=== PATIENT | female | born 1950 | race Caucasian/White ===

== ENCOUNTER 2017-07-27 13:00 | Day surgery (SDC) | payer MEDICARE ==
[~2017-07-27] VITALS: Ht 154.9 cm; Wt 87.6 kg
[~2017-07-27 13:00] MED LIST: ALBU90OI6 INH; CALCA500CH PO; CALTRATE 600 +1 EACH PO; CHOL10002 PO; Caltrate-600 W1 EACH PO; Citrucel500 MG PO; FLUSAL2505 IH; MONT10T PO; NAPR250 PO; RANI150 PO
[2017-07-27] MEDS ORDERED: Omeprazole20 M1 (13:38)
[2018-05-18] MEDS ORDERED: Voltaren100 GM TOP (07:07)
== END 2017-07-27 17:41 | disposition home or self-care (01) ==
LOC: ORSCSDS 13:00
PROVIDERS: Podiatrist Foot & Ankle Surgery
PROC: 0QSP04Z Reposition Left Metatarsal with Internal Fixation Device, Open Approach (ICD-10-PCS; principal; 2017-07-27 14:15)
PROC: 0SGQ04Z Fusion of Left Toe Phalangeal Joint with Internal Fixation Device, Open Approach (ICD-10-PCS; principal; 2017-07-27 14:15)
DX: M20.10 Hallux valgus (acquired), unspecified foot (principal); M20.42 Other hammer toe(s) (acquired), left foot; J45.909 Unspecified asthma, uncomplicated; K21.9 Gastro-esophageal reflux disease without esophagitis; Z79.899 Other long term (current) drug therapy
CPT/HCPCS: 82947; C1713; J0171; J0690; J1100; J1885; J2250; J2405; J3010; J7120

== ENCOUNTER 2018-08-02 11:03 | Day surgery (SDC) | payer MEDICARE ==
[~2018-08-02] VITALS: Ht 154.9 cm; Wt 91.4 kg
[~2018-08-02 11:03] MED LIST changes: +Omeprazole20 M1 PO; +Voltaren100 GM TOP
--- NOTE | 2018-08-02 12:18 | NUR ---
08/02/18 1218 Marcelina Hernandez PRE OP TEACHING COMPLETED AT THIS TIME. CALL LIGHT WITHIN REACH AND WARM BLANKET PROVIDED.
--- NOTE | 2018-08-02 14:17 | NUR ---
08/02/18 1417 Martha Roper WHEN ASKED PT. IF SHE HAD ANY PAIN, PT. VERBALIZED "MY RIGHT FOOT." & THEN WENT BACK TO SLEEP.
--- NOTE | 2018-08-02 15:12 | NUR ---
08/02/18 1512 Martha Roper PT. STILL NAUSEATED IN SD. PT. WITH DRY HEAVES BUT THEN VERBALIZED FEELING BETTER AFTER DRY HEAVES. PT. EATING SOME ICE CHIPS. PT. REFUSED ANY SODA CRACKERS. WILL WAIT TO GET PT. UP TO RECLINER AFTER NAUSEA IS BETTER. RIGHT FOOT CONTINUES TO BE ELEVATED WITH FOB UP. CALL LIGHT WITHIN REACH. PT. VERBALIZES BEING WARM ENOUGH.
== END 2018-08-02 16:45 | disposition home or self-care (01) ==
LOC: ORSCSDS 11:03
PROVIDERS: Podiatrist Foot & Ankle Surgery
PROC: 0QSN04Z Reposition Right Metatarsal with Internal Fixation Device, Open Approach (ICD-10-PCS; principal; 2018-08-02 12:30)
PROC: 0SGK04Z Fusion of Right Tarsometatarsal Joint with Internal Fixation Device, Open Approach (ICD-10-PCS; principal; 2018-08-02 12:30)
DX: M20.11 Hallux valgus (acquired), right foot (principal); J45.909 Unspecified asthma, uncomplicated; G47.33 Obstructive sleep apnea (adult) (pediatric); E78.5 Hyperlipidemia, unspecified; I25.10 Atherosclerotic heart disease of native coronary artery without angina pectoris; E66.01 Morbid (severe) obesity due to excess calories; Z68.39 Body mass index [BMI] 39.0-39.9, adult; Z79.899 Other long term (current) drug therapy
CPT/HCPCS: C1713; C1769; J0690; J1100; J2250; J2405; J2765; J3010; J7120

== ENCOUNTER → 2019-08-16 | Outpatient (CLI) | payer MEDICARE | END | disposition home or self-care (01) | LOC: PLD 10:47 → LAB SHORT 10:47 | DX: N89.8 Other specified noninflammatory disorders of vagina (principal) | CPT/HCPCS: 88305 ==

== ENCOUNTER → 2019-08-16 | Outpatient (CLI) | payer MEDICARE ==
[2019-08-16 15:04] LABS: Candida species (DNA Probe) Negative (NEGATIVE); G. vaginalis (DNA Probe) Negative (NEGATIVE); T. vaginalis (DNA Probe) Negative (NEGATIVE)
== END | disposition home or self-care (01) ==
LOC: LAB UCHC 09:33 → LAB SHORT 09:33
PROVIDERS: Internal Medicine
DX: N76.0 Acute vaginitis (principal)
CPT/HCPCS: 87480; 87510; 87660

== ENCOUNTER → 2019-11-08 | Outpatient (CLI) | payer MEDICARE ==
[2019-11-09 21:30] LABS: Campylobacter Sp Not Detected (NOT DETECT)
[2019-11-09 21:31] LABS: Adenovirus F 40/41 Not Detected (NOT DETECT); Astrovirus Not Detected (NOT DETECT); Cryptosporidium Not Detected (NOT DETECT); Cyclospora Cayetanensis Not Detected (NOT DETECT); E. Coli O157 Not Detected (NOT DETECT); Entamoeba Histolytica Not Detected (NOT DETECT); Enteroaggregative E. coli-EAEC Not Detected (NOT DETECT); Enteropathogenic E. coli-EPEC Not Detected (NOT DETECT); Enterotoxigenic E. coli-ETEC Not Detected (NOT DETECT); Giardia Lamblia Not Detected (NOT DETECT); Norovirus GI/GII Not Detected (NOT DETECT); Plesiomonas Shigelloides Not Detected (NOT DETECT); Rotavirus A Not Detected (NOT DETECT); Salmonella Sp Not Detected (NOT DETECT); Sapovirus Not Detected (NOT DETECT); Shiga Toxin-prod E. coli-STEC Not Detected (NOT DETECT); Shigella/Enteroin E. coli-EIEC Not Detected (NOT DETECT); Vibrio Cholerae Not Detected (NOT DETECT); Vibrio Sp Not Detected (NOT DETECT); Yersinia Enterocolitica Not Detected (NOT DETECT)
[2019-11-10 14:10] LABS: FATS, NEUTRAL Normal (.); FATS, TOTAL Normal (.)
== END | disposition home or self-care (01) ==
LOC: LAB 10:26 → LAB SHORT 10:26 → LAB FUT 10-30 11:05
PROVIDERS: Internal Medicine Gastroenterology
DX: R19.7 Diarrhea, unspecified (principal)
CPT/HCPCS: 0097U; 89055

== ENCOUNTER → 2019-11-30 | Outpatient (CLI) | payer MEDICARE | END | disposition home or self-care (01) | DX: K52.9 Noninfective gastroenteritis and colitis, unspecified (principal) ==

== ENCOUNTER → 2019-12-22 | Outpatient (CLI) | payer MEDICARE | END | disposition home or self-care (01) | LOC: LAB 14:02 → LAB SHORT 14:02 → EDSTATUS 12-20 10:50 → LAB FUT 12-20 10:50 | DX: K52.9 Noninfective gastroenteritis and colitis, unspecified (principal) ==

== ENCOUNTER → 2021-01-11 | Outpatient (CLI) | payer MEDICARE ==
[~2021-01-11] MED LIST changes: +DICLOFENAC SOD100 G1 TP; +Norco 5-325 Ta1 EACH PO; +WIXELA 250-501 EAC1 IH
== END | disposition home or self-care (01) ==
LOC: LAB SHORT 14:22 → LAB UCHC 14:22
DX: N39.0 Urinary tract infection, site not specified (principal)
CPT/HCPCS: 87077; 87086; 87186

== ENCOUNTER 2021-09-09 21:43 | Inpatient (IN) | payer MEDICARE ==
[~2021-09-09] VITALS: Ht 154.9 cm; Wt 90.4 kg
[2021-09-09 22:12] LABS: BASOPHILS ABSOLUTE AUTO 0.05 K/mm3 (0.00-0.23); BASOPHILS PERCENT AUTO 1 % (0-2); EOSINOPHILS ABSOLUTE AUTO 0.09 K/mm3 (0.00-0.68); EOSINOPHILS PERCENT AUTO 1 % (0-6); Hematocrit 44.2 % (33.0-51.0); Hemoglobin 14.8 g/dL (11.5-16.0); IMMATURE GRAN ABSOLUTE AUTO 0.02 K/mm3 (0.00-0.10); IMMATURE GRAN PERCENT AUTO 0 % (0-1); LYMPHOCYTES PERCENT AUTO 14 % (21-46); MONOCYTES ABSOLUTE AUTO 0.52 K/mm3 (0.16-1.47); MONOCYTES PERCENT AUTO 6 % (4-13); Mean Corpuscular HGB 30.3 pg (26.0-34.0); Mean Corpuscular HGB Conc 33.5 g/dL (31.5-36.5); Mean Corpuscular Volume 91 fL (80-100); NEUTROPHILS ABSOLUTE AUTO 7.04 K/mm3 (1.96-9.15); NEUTROPHILS PERCENT AUTO 78 % (41-73); Platelet Count 258 K/mm3 (150-400); RDW Coefficient Variation 11.9 % (11.7-14.2); RDW Standard Deviation 39.4 fL (35.1-46.3); Red Blood Cell Count 4.88 M/mm3 (3.80-5.20); White Blood Cell Count 9.02 K/mm3 (4.00-11.30)
[2021-09-09] MEDS ORDERED: OMEP20ER PO (22:34)
[2021-09-09] MEDS ORDERED: DULERA 100 MCG-13 GM INH (22:35)
[2021-09-09 22:36] LABS: Alanine Aminotransfer (ALT/SGP 23 U/L (12-78); Albumin, Blood 3.8 g/dL (3.4-5.0); Albumin/Globulin Ratio 1.1 (0.8-1.8); Alk Phos 79 U/L (50-136); Anion Gap 7 mmol/L (6-16); Aspartate Aminotrans (AST/SGOT 15 U/L (12-37); Bilirubin, Total 0.6 mg/dL (0.1-1.0); Blood Urea Nitrogen 30 mg/dL (8-24); Bun/Creatinine Ratio 33.3 (12.0-20.0); CO2, Blood 28 mmol/L (21-32); Calcium, Blood 10.2 mg/dL (8.5-10.1); Chloride, Blood 101 mmol/L (98-108); Globulin, Blood 3.6 g/dL (2.2-4.0); Glomerular Filtration Rate >60 (60-); Glucose, Blood 158 mg/dL (70-99); Potassium, Blood 4.1 mmol/L (3.5-5.5); Sodium, Blood 136 mmol/L (136-145); Total Protein, Blood 7.4 g/dL (6.4-8.2)
[2021-09-09 23:00] LABS: Source, Urine Clean Catch
[2021-09-09 23:01] LABS: Bilirubin, Urine Neg (Neg); Blood, Urine Neg (Neg); Glucose Qualitative, Urine Neg (Neg); Ketones, Urine 1+ (Neg); Leukocyte Esterase, Urine Neg (Neg); Nitrite, Urine Neg (Neg); Protein, Urine Neg (Neg); Specific Gravity, Urine 1.025 (1.003-1.022); Urobilinogen, Urine NORM (Normal)
[2021-09-09 23:08] LABS: Appearance, Urine Clear (Clear); Color, Urine Pale Yellow (P-Yellow)
[2021-09-10] MEDS ORDERED: CENTRUM SILVER1 EAC2 PO (03:45)
[2021-09-10] MEDS ORDERED: THERA-D2000 UNIT PO (03:45)
--- NOTE | 2021-09-10 04:27 | NUR ---
PT ARRIVED TO ROOM 226 FROM ER. PT A/O, VSS. PT REP PAIN ACCROSS LOWER ABD. PT REP PAIN X2 DAYS. BT HYPO, ABD SOFT TO PALP. MILDLY DISTENDED. PT REP SMALL BM YESTERDAY AM, STATES NO LONGER PASSING FLATUS. PT DENIES N/V, REP PAIN KIMANI AT THIS TIME. PT ORIENTED TO ROOM/CALL LIGHT/NPO STATUS. COVID SWAB COLLECTED.
[2021-09-10 04:55] LABS: Influenza A, PCR NEGATIVE (NEGATIVE); Influenza B, PCR NEGATIVE (NEGATIVE); Resp Syncytial Virus, PCR NEGATIVE (NEGATIVE); SARS-Cov-2 (COVID-19) PCR, MMC NEGATIVE (NEGATIVE)
--- NOTE | 2021-09-10 06:33 | NUR ---
PT HAD NO CHANGES SINCE ARRIVING TO FLOOR. PT REP PAIN KIMANI, DECLINED NEED FOR PAIN MEDS. PT DENIED N/V, IS VOIDING URINE W/O DIFFICULTY. PT NPO SINCE ARRIVING TO FLOOR, IVF CONT. AWAITING SURGICAL EVAL.
--- NOTE | 2021-09-10 17:39 | NUR ---
SHIFT SUMMARY PT A&OX4, VSS/RA DAY/2LNC NOC, VOIDING WELL, NPO, DENIES PAIN, IVF INFUSING 20GRAC. WENT TO O.R. APPROX 11 FOR SIG COLECTOMY W/POSS OSTOMY. WILL REPORT TO ONCOMING NOC RN.
[2021-09-11 03:59] LABS: BASOPHILS ABSOLUTE AUTO 0.03 K/mm3 (0.00-0.23); BASOPHILS PERCENT AUTO 0 % (0-2); EOSINOPHILS PERCENT AUTO 0 % (0-6); Hematocrit 38.3 % (33.0-51.0); Hemoglobin 12.8 g/dL (11.5-16.0); IMMATURE GRAN ABSOLUTE AUTO 0.03 K/mm3 (0.00-0.10); IMMATURE GRAN PERCENT AUTO 0 % (0-1); LYMPHOCYTES ABSOLUTE AUTO 0.58 K/mm3 (0.84-5.20); LYMPHOCYTES PERCENT AUTO 6 % (21-46); MONOCYTES ABSOLUTE AUTO 0.61 K/mm3 (0.16-1.47); MONOCYTES PERCENT AUTO 6 % (4-13); Mean Corpuscular HGB 30.7 pg (26.0-34.0); Mean Corpuscular HGB Conc 33.4 g/dL (31.5-36.5); Mean Corpuscular Volume 92 fL (80-100); Mean Platelet Volume 10.6 fL (9.1-12.4); NEUTROPHILS PERCENT AUTO 88 % (41-73); Platelet Count 204 K/mm3 (150-400); RDW Coefficient Variation 11.9 % (11.7-14.2); RDW Standard Deviation 40.2 fL (35.1-46.3); Red Blood Cell Count 4.17 M/mm3 (3.80-5.20); White Blood Cell Count 10.55 K/mm3 (4.00-11.30)
[2021-09-11 04:25] LABS: Anion Gap 5 mmol/L (6-16); Blood Urea Nitrogen 18 mg/dL (8-24); Bun/Creatinine Ratio 23.6 (12.0-20.0); CO2, Blood 28 mmol/L (21-32); Chloride, Blood 107 mmol/L (98-108); Creatinine, Blood 0.76 mg/dL (0.40-1.00); Glomerular Filtration Rate >60 (60-); Glucose, Blood 129 mg/dL (70-99); Potassium, Blood 3.8 mmol/L (3.5-5.5); Sodium, Blood 140 mmol/L (136-145)
[2021-09-11 04:27] LABS: Calcium, Blood 7.7 mg/dL (8.5-10.1)
--- NOTE | 2021-09-11 05:07 | NUR ---
PT IS ALERT AND ORIENTED X4.LUNGS CLEAR. BT PRESENT. OSTOMY BM OUTPUT 300 ML. MIDLINE INCISION DRESSING WITH SOME SANGENOUS DRAIN; MARKED. LOWER PART OF ABDOME MIDLINE INCISCION IS BRUISED BUT SOFT. EPIDURAL SITE WITH SOME BLOOD ON SITE WITH NO CHANGES SINCE ARRIVAL FROM PACU. PAIN CONTROLLED. BILATERAL FULL SENSATION. ABLE TO LIFT UP BOTH LEGS. VSS. PT WAS ITCHING AND BENADRYL WAS GIVEN. NPO WITH ICE CHIPS.
--- NOTE | 2021-09-11 17:49 | NUR ---
SUMMARY: PT IS POD1 SIGMOID COLECTOMY. A/O, PT HYPOTENSIVE AT TIMES, ASYMPTOMATIC, OTHERWISE VSS. EPIDURAL MANAGING PAIN WELL, PT REPORTS PAIN 0-2/10 TODAY, INCREASES WITH MOVEMENT. PT REPORTS FULL SENSATION, SEE EPIDURAL ASSESSMENTS. OSTOMY APPLIANCE LEAKED TONIGHT, HAS DRAINED LIQUID BROWN STOOL TODAY. KATHIA DRESSING WET SO REMOVED AND INCISION CLEANSED AND KATHIA REPLACED. THERE IS REDNESS/BRUISING AT THE BASE OF INCISION, DR. BHAGAT IN ROOM AT TIME OF CHANGE AND BRUISING NOTED. OSTOMY BAG ALSO REMOVED AND SURROUNDING SKIN CLEANED, THERE IS WHAT APPEARS TO BE CLOTTING NEAR THE STOMA, DR. BHAGAT ALSO MADE AWARE OF THIS AND PLANS TO LET DR. LIZAMA KNOW. OTHERWISE STOMA IS WNL. OSTOMY BAG REAPPLIED. PT TOLERATED WELL. NO ACUTE SAFETY CONCERNS AT THIS TIME. WILL CTM AND REPORT TO SHANKAR LOMAS.
--- NOTE | 2021-09-12 04:40 | NUR ---
ALERT AND ORIENTED X4. LUNGS WHEEZING. BS ACTIVE. OSTOMY BAG GOT CHANGED; THERE IS A BIG BLOOD CLOT AT THE BUDD; PREVIOUS RN IMFORMED ME OF MD IS AWARE. BM OUTPUT SMALL THRU THE SHIFT; PASTY. OSTOMY BAG AND INCISION DRESSING WAS CHANGED DUE TO LEAKING TO THE INCISION. TEMP FROM 99.0 TO 100.0 THRU THE HAND BINDER CUTTER. RED SPOT BY INCISION IS SOFT. VSS WITH THE EXEPTION OF THE TEMP. TOLERATING CLEARS.
--- NOTE | 2021-09-12 15:05 | NUR ---
[facility] SUPPLY SHEET FILLED OUT AND FAXED. COMPLETED DOCUMENT PLACED ON PT'S CHART.
--- NOTE | 2021-09-12 16:51 | NUR ---
SHIFT SUMMARY PT IS POD#2 FROM SIGMOID COLECTOMY WITH OSTOMY. PAIN MANGED WITH EPIDURAL. SHE HAS HAD FULL SENSATION T/O THE DAY BUT REPORTS ADEQUATE PAIN MANAGMENT. EPIDURAL DRESSING INTACT, SOME DRY BLOOD UNDER DRESSING, NO CHANGES SINCE AM ASSESSMENT. PT WAS ABLE TO GET TO THE CHAIR WITH 2 ASSIST. PT IS TOLERATING CLEAR LIQUID TRAYS. PT HAS NOT HAD OSTOMY OUTPUT TODAY. REPORT GIVEN TO YESSI LOMAS.
--- NOTE | 2021-09-12 16:53 | NUR ---
ASSUMED CARE OF PT FROM HUBER Nolan RN. PT SLEEPING. BREATHING E/U.
--- NOTE | 2021-09-12 18:52 | NUR ---
report given to oncoming shift.
--- NOTE | 2021-09-12 23:58 | NUR ---
ASSUMING CARE OF PT FROM PRIMARY ABEBE FELIX. PT RESTING AT THIS TIME,
--- NOTE | 2021-09-13 06:05 | NUR ---
TIRE BAGGER SUMMARY NO ACUTE CHANGES THIS SHIFT. PT AAOX4 AND PLEASANT. EPIDURAL @ 6 ML/HR, PT REPORTING NO PAIN. EPIDURAL SITE WNL. PT HAS FULL SENSATION. COLOSTOMY HAS SMALL AMOUNTS OF BROWN LIQUID. VSS, WILL CONTINUE TO MONITOR.
--- NOTE | 2021-09-13 17:18 | NUR ---
SHIFT SUMMARY: POD 3 COLECTOMY WITH COLOSTOMY PATIENT IS ALERT AND ORIENTED X4. VS ARE WNL AND IS ON RA. PAIN IS MANAGED WITH 2 PO NORCO'S. KATHIA AND OSTOMY WERE CHANGED ABOUT AN HOUR AGO BECAUSE THE OSTOMY LEAKED ON THE KATHIA. CHARGE NURSE AND THIS NURSE CHANGED KATHIA TO A MEDIPORT DRESSING AND ALSO CHANGED THE OSTOMY. PATIENT WAS TALKED VERBALLY ON HOW TO CHANGE THE OSTOMY BAG AND THAT SHE CAN SHOWER WITH IT. PATIENT VERBALIZED SOME UNDERSTANDING OF IT. PATIENT WAS ENCOURAGED THAT SHE WILL BE ABLE TO GO ON VACATION [place] AND HER COURAGE WILL BE GAINED THE MORE SHE WORKS ON HER OSTOMY. PATIENT IS WANTING TO TRY AND CHANGE HER OSTOMY NEXT TIME IT LEAKS AND WANTS THE NURSE TO WATCH AND GIVE HER TIPS. PATIENTS OSTOMY HAS RED DARK OUTPUT AT THIS TIME AND IS CREATING GAS. SHE IS TOLERATING A SMALL AMOUNT OF PO INTAKE. PATIENT AMBULATED THE HALLWAY AND IS A SBA WITH FWW AND GAIT BELT. SHE IS VOIDING YELLOW URINE. CALLS APPROPRIATELY. CALL LIGHT WITHIN REACH. THE PLAN IS TO POSSIBLY DISCHARGE HOME WITH HOME HEALTH ON THURSDAY AND TO CONTINUE OSTOMY EDUCATION. PATIENT IS VERY WILLING TO LEARN ABOUT HER OSTOMY CARE. NEEDS ENCOURAGEMENT THAT SHE CAN DO IT.
[2021-09-14 04:17] LABS: BASOPHILS ABSOLUTE AUTO 0.03 K/mm3 (0.00-0.23); BASOPHILS PERCENT AUTO 0 % (0-2); EOSINOPHILS ABSOLUTE AUTO 0.34 K/mm3 (0.00-0.68); EOSINOPHILS PERCENT AUTO 5 % (0-6); Hematocrit 34.1 % (33.0-51.0); Hemoglobin 11.2 g/dL (11.5-16.0); IMMATURE GRAN ABSOLUTE AUTO 0.02 K/mm3 (0.00-0.10); IMMATURE GRAN PERCENT AUTO 0 % (0-1); LYMPHOCYTES ABSOLUTE AUTO 1.29 K/mm3 (0.84-5.20); LYMPHOCYTES PERCENT AUTO 19 % (21-46); MONOCYTES ABSOLUTE AUTO 0.45 K/mm3 (0.16-1.47); MONOCYTES PERCENT AUTO 7 % (4-13); Mean Corpuscular HGB 30.8 pg (26.0-34.0); Mean Corpuscular HGB Conc 32.8 g/dL (31.5-36.5); Mean Corpuscular Volume 94 fL (80-100); Mean Platelet Volume 10.3 fL (9.1-12.4); NEUTROPHILS ABSOLUTE AUTO 4.74 K/mm3 (1.96-9.15); NEUTROPHILS PERCENT AUTO 69 % (41-73); Platelet Count 211 K/mm3 (150-400); RDW Coefficient Variation 11.7 % (11.7-14.2); Red Blood Cell Count 3.64 M/mm3 (3.80-5.20); White Blood Cell Count 6.87 K/mm3 (4.00-11.30)
[2021-09-14 04:36] LABS: Anion Gap 3 mmol/L (6-16); Blood Urea Nitrogen 8 mg/dL (8-24); CO2, Blood 27 mmol/L (21-32); Calcium, Blood 8.1 mg/dL (8.5-10.1); Chloride, Blood 109 mmol/L (98-108); Creatinine, Blood 0.67 mg/dL (0.40-1.00); Glomerular Filtration Rate >60 (60-); Glucose, Blood 122 mg/dL (70-99); Potassium, Blood 4.4 mmol/L (3.5-5.5); Sodium, Blood 139 mmol/L (136-145)
--- NOTE | 2021-09-14 04:53 | NUR ---
SHIFT SUMMARY POD4 SIGMOID COLECTOMY WITH END COLOSTOMY. OSTOMY ON L QUADRANT, VERY MINIMAL STOOL, PASSING FLATUS IN OSTOMY BAG. PT REPORTS SOME MILD PAIN (3/10), INCREASED ABD PAIN WHEN GETTING UP (5/10). PAIN MEDS MANAGED WITH NORCO AND TYLENOL WHICH PROVIDES RELIEF. PT NORMALLY WEARS CPAP AT NIGHT. REPORTS THAT CONT BIOX BEEPS/ALARMS AT NIGHT AND HAS NOT BEEN ABLE TO SLEEP WELL. CPAP REPLACED WITH 2L NASAL CANULA OVERNIGHT. PT STS SHE WAS ABLE TO SLEEP BETTER AND REST OVERNIGHT. TOLERATING FULL LIQ DIET, BUT DOES NOT HAVE MUCH APPETITE. PT REPORTS MILD NAUSEA WHEN SHE GOT UP X1 MEDICATED WITH ZOFRAN DENIES VOMITING. BT PRESENT. AMBULATES IN THE BATHROOM, SBA WITH FWW. CALL LIGHT WITHIN REACH. WILL PROVIDE REPORT TO ONCOMING NURSE.
--- NOTE | 2021-09-14 13:28 | NUR ---
PROVIDING EDUCATION TO PATIENT ON PARTNER ON OSTOMY. SHE REPORTED FEELING WEAK AND CLAMMY. DENIED FEELINGS ON ANXIETY RELATED TO EDUCATION. SHE REPORTED SLIGHT TINGLING IN FINGERS AND TOES THAT RESOLVED. SHE REPORTED FEELING LIKE SHE WAS HAVING A "SUGAR CRASH". SHE STATED SHE HAS AVOIDED A DIABETES DIAGNOSES HER WHOLE LIFE. SPOKE WITH DR. LIZAMA AND RECIEVED ORDERS FOR A CBG CHECK. CBG OF 165. PT CURRENTLY SITTING UP IN HER CHAIR. REPORTS SOME IMPROVEMENT, CURRENTLY ATTEMPTING TO TAKE A NAP R/T BEING VERY TIRED. CONTINOUS BIOX ON PATENT AND CALL LIGHT IN REACH.
--- NOTE | 2021-09-14 14:24 | NUR ---
pt reports feeling better at this time. she is still sitting up in chair trying to sleep.
--- NOTE | 2021-09-14 17:30 | NUR ---
SHIFT SUMMARY PT IS POD 4 SIGMOID COLECTOMY W/ OSTOMY TO LLQ. NO OUTPUT THROUGH STOMA YET, FREQ FLATUS. STOMA APPEARS DARK RED W/ BROWN SLOUGH. PT APPEARS ANXIOUS ABOUT OSTOMY CARE. ABEBE HOLLOWAY DISCUSSED OSTOMY CARE W/ PATIENT AND PARTNER & ANSWERED QIESTIONS FOR HER, PT WAS RECEPTIVE TO LEARNING. MIDLINE INCISION W/ SHON AND MEDIPORE DRSG IN PLACE, SMALL AMT OF SHADOWING PRESENT. TOLERATING FULL LIQUID DIET, INT NAUSEA REPORTED T/O DAY, NO VOMITTING, MEDICATED W/ ZOFRAN PER EMAR. PT REPORTS HAVING MINIMAL APPETITE AND HAS POOR INTAKE, ENCOURAGING ENSURE/NUTRITION. VSS T/O SHIFT. 2L O2 VIA NC FOR PATIENT COMFORT. PT REPORTED FEELING LIKE SHE HAD A LOW BLOOD SUGAR, DR. LIZAMA NOTIFIED AND CBG ORDERED, WAS 165. PT REPORTED FEELING BETTER AFTER A NAP, THEN STATED SHE FELT SHE STOPPED BREATHING WHEN DOZING OFF THIS AFTERNOON, DENIED IT BEING RELATED TO HER SLEEP APNEA. BIOX IN PLACE AND O2 REMAINS >90% ON 2L. SHE APPEARS ANXIOUS BUT IS ABLE TO BE REASSURED. WILL CONTINUE TO MONITOR AND REPORT TO ONCOMING RN.
--- NOTE | 2021-09-14 18:02 | NUR ---
pt reported to this rn that she has had a headache since this am when she reported slight nausea and tingling in hands and feet. she reported that she had been having increasing headaches before admission and had seen her pcp regarding them, occasionally causing nausea. she had been take a medication "Migratone" 2 tabs daily with some relief. pt reported norco has helped her headaches in hospital prior, medicated per emar. will monitor for relief from headache and worsening symptoms.
--- NOTE | 2021-09-14 19:15 | NUR ---
RECEIVED REPORT AND ASSUMED CARE OF PT. SHE IS SITTING UP IN THE RECLINER, A&O, REPORTS PAIN TOLERABLE AT THIS TIME. ONE PERSON STANDBY ASSIST TO THE BATHROOM WITH A FWW, REFUSES GAIT BELT AT THIS TIME. ABLE TO URINATE WITHOUT DIFFICULTY, BURPING OSTOMY BAG INDEPENDENTLY. WCTM.
--- NOTE | 2021-09-15 05:00 | NUR ---
SHIFT SUMMARY: KAMARI IS A&OX4. VSS, NO ACUTE EVENTS OVERNIGHT. SHE IS A ONE-PERSON STANDBY ASSIST TO THE BATHROOM, ABLE TO TURN AND REPOSITION HERSELF IN BED INDEPENDENTLY, TOLERATING LIQUIDS WITH MINIMAL NAUSEA THIS SHIFT. GOOD URINE OUTPUT, MIDLINE DRESSING DRY AND INTACT. SHE DID WEAR HER CPAP WHILE SHE WAS IN BED RESTING THIS SHIFT, USES THE CALL LIGHT APPROPRIATELY. OSTOMY WITH MINIMAL GAS OUTPUT THIS SHIFT, NO STOOL, APPLIANCE ADHERED WELL. SHE IS LYING IN BED WITH THE CALL LIGHT IN REACH. WILL REPORT TO DAY SHIFT RN.
--- NOTE | 2021-09-15 17:39 | NUR ---
SHIFT SUMMARY A&O X4,LESS ANXIETY ABOUT OSTOMY TODAY. POD5 SIGMOID COLECTOMY, MIDLINE INCISION W/MEDIPORE, C/D/I. STOMA APPEARS MAUROON IN COLOR, DR HAS SEEN & IS OK W/ COLOR. NO BM YET, FREQ FLATUS, PT BURPS OWN BAG. PT REPORTS MOD ABD PAIN, MEDICATED W/ NORCO PER EMAR. INT NAUSEA, MOSTLY W/ MOVEMENT. MEDICATED W/ ZOFRAN PER EMAR. AMBULATED SHORT DIST FREQ TODAY, ENCOURAGED MOVEMENT & ACTIVITY FREQUENTLY. TOLERATING PO INTAKE ALTHOUGH VERY POOR APPETITE. ENCOURAGING PO INTAKE & NUTRITION. PT REPORTS HAVING A BETTER DAY TODAY & SEEMS TO HAVE A BETTER AFFECT. WILL REPORT TO ONCOMING RN.
--- NOTE | 2021-09-15 19:37 | NUR ---
RECEIVED REPORT AND ASSUMED CARE OF PT. SHE IS SITTING UP IN THE RECLINER AT THE BEDSIDE, CHEERFUL AFFECT. SHE STATES SHE HAS BEEN UP WALKING TODAY AND CONTINUES TO PASS GAS THROUGH HER OSTOMY. SHE DENIES ANY NEEDS AT THIS TIME. TONY.
--- NOTE | 2021-09-16 05:04 | NUR ---
SHIFT SUMMARY: KAMARI IS A&O X 4. VSS, NO ACUTE EVENTS OVERNIGHT. SHE IS INDEPENDENT TO THE BATHROOM, IS BURPING HER OSTOMY INDEPENDENTLY, NO STOOL THROUGH OSTOMY YET. SHE IS TOLERATING PO INTAKE, URINATING WITHOUT DIFFICULTY, AND ABLE TO MAKE HER NEEDS KNOWN. SHE IS LYING IN BED WITH HER CPAP IN PLACE, CALL LIGHT IN REACH. WILL REPORT TO DAY SHIFT RN.
--- NOTE | 2021-09-16 09:00 | NUR ---
IN ROOM. EXPECTING DISCHARGE TODAY. WILL NEED FURTHER OSTOMY TRAINING. WANTS PT TO TAKE SHOWER AFTER REMOVE DRESSINGS AND BAG. THEN REPLACE AFTER SHOWER. PT A/O X3 PLEASNT SOME ANX. H/R REG, NO MURMER NOTED. NO TELE. LUNGS CLDAR UPPER, LOWER DOM. RESP EASY, SHALLOW, UNLABORED. ON R/A. BT ACTIVE. OSTOMY IN PLACE AT THIS TIME. VOIDS BATHROOM. INDEPENDANT. BED IN LOW POSITION, CALL LITE IN REACH, CLLS APPROP
[2021-09-16] MEDS ORDERED: HYDR1TAB94 PO (12:13)
--- NOTE | 2021-09-16 14:16 | NUR ---
DISCHARGE REVIEWD WITH PT AND S/O. IV PULLED INTACT. NO TELE. SUPPLIES GIVEN FOR NEXT COUPLE DAYS FOR OSTOMY. PT TRAINED T/O FOR CARE. PT VERBALIZED UNDERSTANDING MEDS AND INST. PT WHEELED TO DOOR BY AIDE AT [id number]
--- NOTE | 2021-09-17 13:41 | NUR ---
09/17/21 1341 Jessica Britton VERIFICATIONS: EDIT CHART.
== END 2021-09-16 14:15 | disposition home or self-care (01) | DRG 331 ==
LOC: ER 21:43 → SURS 09-10 02:48
PROVIDERS: Emergency Medicine; ADMIT Surgery
PROC: 0DBN0ZZ Excision of Sigmoid Colon, Open Approach (ICD-10-PCS; principal; 2021-09-10 11:30)
PROC: 0D1N0Z4 Bypass Sigmoid Colon to Cutaneous, Open Approach (ICD-10-PCS; 2021-09-10 11:30)
DX: K56.601 Complete intestinal obstruction, unspecified as to cause (principal); Z20.822 Contact with and (suspected) exposure to COVID-19; K21.9 Gastro-esophageal reflux disease without esophagitis; J45.909 Unspecified asthma, uncomplicated; Z53.29 Procedure and treatment not carried out because of patient's decision for other reasons; Z87.19 Personal history of other diseases of the digestive system; Z98.890 Other specified postprocedural states
CPT/HCPCS: 0241U; 36415; 74177; 80048; 80053; 81003; 82947; 83605; 85025; 88307; 94640; 94760; 94762; 96374; 96375; 99285-25; A9270; J0171; J0690; J1100; J1650; J1885; J2001; J2250; J2270; J2405; J2704; J3010; J7042; J7050; J7120; Q9967

== ENCOUNTER 2022-03-11 10:33 | Day surgery (SDC) | payer MEDICARE ==
[~2022-03-11] VITALS: Ht 154.9 cm; Wt 77.4 kg
[~2022-03-11 10:33] MED LIST changes: +ATOR40TA PO; +CENTRUM SILVER1 EAC2 PO; +DULERA 100 MCG-13 GM INH; +HYDR1TAB94 PO; +OMEP20ER PO; +THERA-D2000 UNIT PO
[2022-03-11] MEDS ORDERED: Aspir 8181 MG PO (10:52)
--- NOTE | 2022-03-11 11:50 | NUR ---
03/11/22 1150 Julia Vasquez HISTORY, CHART, MEDICATIONS AND ALLERGIES REVIEWED BEFORE START OF PROCEDURE. PATIENT CONFIRMS NPO STATUS AND AGREES WITH SCHEDULED PROCEDURE. 3-LEAD EKG REVIEWED WITH PHYSICIAN PRIOR TO START OF PROCEDURE. MONITOR INTACT WITH CONTINUOUS PULSE OXIMETRY,CAPNOGRAPHY, 3-LEAD EKG, INTERMITTENT BP. SUPPLEMENTAL O2 TO BE TITRATED THROUGHOUT PROCEDURE TO MAINTAIN O2 SATURATION ABOVE 90%. PATIENT DETERMINED TO BE ASA APPROPRIATE FOR PROPOFOL SEDATION PRIOR TO START OF PROCEDURE BY
--- NOTE | 2022-03-11 13:29 | NUR ---
Discharge instructions reviewed with patient. Patient verbalizes understanding. Copy given to patient to take home.
--- NOTE | 2022-03-11 13:48 | NUR ---
PT SO CALLED BY RN 3 TIMES, MESSAGE LEFT TWICE, WAITING ON A CALL BACK, WILL TRY AGAIN SOON. PT DOES NOT HAVE PHONE TO CALL HERSELF.
--- NOTE | 2022-03-11 14:15 | NUR ---
Discharged via wheelchair to private car for ride home.
== END 2022-03-11 14:14 | disposition home or self-care (01) ==
LOC: ORSCMMR 10:33 → ORD 12:00 → ORSCMMR 14:14
PROVIDERS: Surgery
PROC: 0DBM8ZX Excision of Descending Colon, Via Natural or Artificial Opening Endoscopic, Diagnostic (ICD-10-PCS; principal; 2022-03-11 12:00)
PROC: 0DBP8ZX Excision of Rectum, Via Natural or Artificial Opening Endoscopic, Diagnostic (ICD-10-PCS; principal; 2022-03-11 12:00)
DX: Z93.3 Colostomy status (principal); Z86.010 Personal history of colon polyps; K62.89 Other specified diseases of anus and rectum; K56.699 Other intestinal obstruction unspecified as to partial versus complete obstruction; K57.30 Diverticulosis of large intestine without perforation or abscess without bleeding; J45.909 Unspecified asthma, uncomplicated; E78.5 Hyperlipidemia, unspecified; Z79.899 Other long term (current) drug therapy; Z79.82 Long term (current) use of aspirin
CPT/HCPCS: 36415; 86850; 86900; 86901; 88305; J2704; J7120

== ENCOUNTER 2022-07-26 07:57 | Inpatient (IN) | payer MEDICARE ==
[~2022-07-26] VITALS: Ht 154.9 cm; Wt 73.4 kg
[~2022-07-26 07:57] MED LIST changes: +Aspir 8181 MG PO
[2022-07-26 08:46] LABS: BASOPHILS ABSOLUTE AUTO 0.04 K/mm3 (0.00-0.23); BASOPHILS PERCENT AUTO 1 % (0-2); EOSINOPHILS ABSOLUTE AUTO 0.05 K/mm3 (0.00-0.68); EOSINOPHILS PERCENT AUTO 1 % (0-6); Hematocrit 42.4 % (33.0-51.0); Hemoglobin 14.2 g/dL (11.5-16.0); IMMATURE GRAN ABSOLUTE AUTO 0.02 K/mm3 (0.00-0.10); IMMATURE GRAN PERCENT AUTO 0 % (0-1); LYMPHOCYTES ABSOLUTE AUTO 0.81 K/mm3 (0.84-5.20); LYMPHOCYTES PERCENT AUTO 11 % (21-46); MONOCYTES ABSOLUTE AUTO 0.61 K/mm3 (0.16-1.47); MONOCYTES PERCENT AUTO 8 % (4-13); Mean Corpuscular HGB 29.6 pg (26.0-34.0); Mean Corpuscular HGB Conc 33.5 g/dL (31.5-36.5); Mean Corpuscular Volume 88 fL (80-100); Mean Platelet Volume 9.8 fL (9.1-12.4); NEUTROPHILS ABSOLUTE AUTO 5.77 K/mm3 (1.96-9.15); NEUTROPHILS PERCENT AUTO 79 % (41-73); Platelet Count 310 K/mm3 (150-400); RDW Coefficient Variation 12.4 % (11.7-14.2); RDW Standard Deviation 40.6 fL (35.1-46.3)
[2022-07-26 09:31] LABS: Albumin, Blood 3.4 g/dL (3.4-5.0); Bilirubin, Total 0.9 mg/dL (0.1-1.0); Bun/Creatinine Ratio 14.6 (12.0-20.0); Calcium, Blood 9.4 mg/dL (8.5-10.1); Creatinine, Blood 0.82 mg/dL (0.40-1.00); Globulin, Blood 3.4 g/dL (2.2-4.0); Potassium, Blood 3.6 mmol/L (3.5-5.5); Total Protein, Blood 6.8 g/dL (6.4-8.2)
[2022-07-26] MEDS ORDERED: METAMUCIL POWD798 GM PO (15:15)
--- NOTE | 2022-07-26 18:56 | NUR ---
SUMMARY PT ARRIVED TO UNIT FROM ED. PLACED NG TUBE TO R NARES PER ORDERS. PT TOLERATED FAIR. PRODUCING GREEN OUTPUT. IV FLUIDS INFUSING PER ORDERS. PT VOIDING. PT C/O ABDOMINAL PAIN. DR CRANE CALLED AND ORDERS OBTAINED.
--- NOTE | 2022-07-27 04:48 | NUR ---
SHIFT SUMMARY PT A&OX4, PLEASANT AND COOPERATIVE WITH CARE. NO ACUTE CHANGES. SBA TO BATHROOM. PT HAS SLEEP APNEA, PLACED ON CONT BIOX. 2L NC WHILE SLEEPING TO KEEP SATS >90. PT IS NPO. NG TUBE TO SUCTION, DRAINING BROWN FLUID. CALLS APPROPRIATELY, CALL LIGHT WITHIN REACH.
[2022-07-27 05:16] LABS: Bilirubin, Total 0.7 mg/dL (0.1-1.0); Bun/Creatinine Ratio 16.1 (12.0-20.0); Calcium, Blood 9.2 mg/dL (8.5-10.1); Creatinine, Blood 0.81 mg/dL (0.40-1.00); Globulin, Blood 3.1 g/dL (2.2-4.0); Potassium, Blood 3.7 mmol/L (3.5-5.5); Total Protein, Blood 6.1 g/dL (6.4-8.2)
--- NOTE | 2022-07-27 10:28 | NUR ---
DR MANLEY AND DR HAUSER IN TO SEE PT.
--- NOTE | 2022-07-27 17:12 | NUR ---
SUMMARY NO ACUTE CHANGES T/O SHIFT. PT'S NG PUT OUT 120 ML DARK GREENSIH BROWH FLUID. HAS DENIED NAUSEA. MEDICATED ONCE DURING SHIFT FOR 5/10 ABD PAIN PER ORDERS. CLAMPED NG MULTIPLE TIMES DURING SHIFT SO PT COULD SHOWER AND AMBULATE IN RAYA ON THREE SEPARATE OCCASIONS. TOELRATED WELL. PLACED PT ON 2L 02 WHILE SLEPT DUE TO HX OF SLEEP APNEA/SATS DROPPED TO MID 80S. PT UNABLE TO WEAR HOME CPAP DUE TO PRESENCE OF NG TUBE IN R NARES. CALL LIGHT IN REACH.
[2022-07-28 05:05] LABS: BASOPHILS ABSOLUTE AUTO 0.04 K/mm3 (0.00-0.23); BASOPHILS PERCENT AUTO 1 % (0-2); EOSINOPHILS ABSOLUTE AUTO 0.13 K/mm3 (0.00-0.68); EOSINOPHILS PERCENT AUTO 4 % (0-6); Hemoglobin 12.5 g/dL (11.5-16.0); IMMATURE GRAN ABSOLUTE AUTO 0.01 K/mm3 (0.00-0.10); IMMATURE GRAN PERCENT AUTO 0 % (0-1); LYMPHOCYTES ABSOLUTE AUTO 0.92 K/mm3 (0.84-5.20); LYMPHOCYTES PERCENT AUTO 28 % (21-46); MONOCYTES ABSOLUTE AUTO 0.53 K/mm3 (0.16-1.47); MONOCYTES PERCENT AUTO 16 % (4-13); Mean Corpuscular HGB 30.1 pg (26.0-34.0); Mean Corpuscular HGB Conc 32.9 g/dL (31.5-36.5); Mean Corpuscular Volume 92 fL (80-100); Mean Platelet Volume 10.2 fL (9.1-12.4); NEUTROPHILS ABSOLUTE AUTO 1.65 K/mm3 (1.96-9.15); NEUTROPHILS PERCENT AUTO 50 % (41-73); Platelet Count 252 K/mm3 (150-400); RDW Coefficient Variation 12.5 % (11.7-14.2); RDW Standard Deviation 42.3 fL (35.1-46.3); Red Blood Cell Count 4.15 M/mm3 (3.80-5.20); White Blood Cell Count 3.28 K/mm3 (4.00-11.30)
--- NOTE | 2022-07-28 06:05 | NUR ---
SHIFT SUMMARY A&OX4, PLEASANT AND COOPERATIVE WITH CARE. NO ACUTE CHANGES. MEDICATED FOR PAIN TWICE THIS SHIFT WITH TORADOL. SBA TO BATHROOM TO HELP MANAGE LINES/CORDS. PT WENT FOR A WALK IN THE HALLS BEFORE BED. REMAINS NPO, NG OUTPUT IS BROWN/GREEN. 2L NC WHILE SLEEPING. CALLS APPROPRIATELY, CALL LIGHT WITHIN REACH
[2022-07-28 06:21] LABS: Albumin, Blood 2.8 g/dL (3.4-5.0); Albumin/Globulin Ratio 0.9 (0.8-1.8); Bilirubin, Total 0.9 mg/dL (0.1-1.0); Bun/Creatinine Ratio 26.2 (12.0-20.0); Calcium, Blood 9.2 mg/dL (8.5-10.1); Creatinine, Blood 0.73 mg/dL (0.40-1.00); Globulin, Blood 3.2 g/dL (2.2-4.0); Potassium, Blood 3.7 mmol/L (3.5-5.5)
--- NOTE | 2022-07-28 19:55 | NUR ---
SHIFT SUMMARY S/P SBO, A/OX4, VSS. PT DID WELL WITH NG TUBE CLAMPED TODAY, HAD CLEAR DIET WITH NO N/V AFTERWARDS, SHE DID REPORT SOME LOWER ABD CRAMPING SO NG WAS LEFT IN PLACE A LITTLE LONGER. MULTIPLE WALKS IN THE RAYA TODAY, PAIN WELL MANAGED. REPORT GIVEN TO SHANKAR LOMAS.
[2022-07-29 04:47] LABS: BASOPHILS ABSOLUTE AUTO 0.02 K/mm3 (0.00-0.23); BASOPHILS PERCENT AUTO 1 % (0-2); EOSINOPHILS ABSOLUTE AUTO 0.16 K/mm3 (0.00-0.68); EOSINOPHILS PERCENT AUTO 5 % (0-6); Hematocrit 35.9 % (33.0-51.0); IMMATURE GRAN ABSOLUTE AUTO 0.01 K/mm3 (0.00-0.10); IMMATURE GRAN PERCENT AUTO 0 % (0-1); LYMPHOCYTES ABSOLUTE AUTO 0.65 K/mm3 (0.84-5.20); LYMPHOCYTES PERCENT AUTO 21 % (21-46); MONOCYTES ABSOLUTE AUTO 0.49 K/mm3 (0.16-1.47); MONOCYTES PERCENT AUTO 16 % (4-13); Mean Corpuscular HGB 30.4 pg (26.0-34.0); Mean Corpuscular HGB Conc 33.4 g/dL (31.5-36.5); Mean Corpuscular Volume 91 fL (80-100); Mean Platelet Volume 10.1 fL (9.1-12.4); NEUTROPHILS ABSOLUTE AUTO 1.72 K/mm3 (1.96-9.15); NEUTROPHILS PERCENT AUTO 56 % (41-73); Platelet Count 253 K/mm3 (150-400); RDW Coefficient Variation 12.5 % (11.7-14.2); RDW Standard Deviation 41.1 fL (35.1-46.3); Red Blood Cell Count 3.95 M/mm3 (3.80-5.20); White Blood Cell Count 3.05 K/mm3 (4.00-11.30)
--- NOTE | 2022-07-29 05:24 | NUR ---
SHIFT SUMMARY PT A&OX4, PLEASANT AND COOPERATIVE WITH CARE. PT A LITTLE MORE PAINFUL THIS EVENING, MEDICATED WITH FENTANYL AND TORADOL. NG TUBE HAS BEEN CLAMPED, PT REPORTS NO NAUSEA. INDEPENDENT TO BATHROOM. PT WALKED THE HALLS BEFORE BED. TOLERATING SMALL SIPS OF FLUIDS. PT REPORTED A SMALL BM "NICKEL SIZE, BROWN/LOOSE", NO FLATUS. CALLS APPROPRIATELY, CALL LIGHT WITHIN REACH.
[2022-07-29 08:46] LABS: Albumin, Blood 2.8 g/dL (3.4-5.0); Albumin/Globulin Ratio 0.9 (0.8-1.8); Bilirubin, Total 0.7 mg/dL (0.1-1.0); Bun/Creatinine Ratio 38.7 (12.0-20.0); Calcium, Blood 9.6 mg/dL (8.5-10.1); Creatinine, Blood 0.62 mg/dL (0.40-1.00); Globulin, Blood 3.2 g/dL (2.2-4.0); Potassium, Blood 3.6 mmol/L (3.5-5.5)
--- NOTE | 2022-07-29 18:19 | NUR ---
SHIFT SUMMARY S/P SBO, NG TUBE REMOVED AT START OF SHIFT, PT REPORTS PAIN WHICH IS MANAGED PER EMAR, MULTIPLE LOOSE BM TODAY BUT STILL HAVING PAIN, PLAN FOR SMALL BOWEL FOLLOW THROUGH TOMORROW. MULTPLE INDEPENDENT WALKS IN THE RAYA, PT INDEPENDENT IN ROOM AND IN HALLS. NO ACUTE EVENTS THIS SHIFT, CALL LIGHT IN REACH, WILL CTM AND REPORT TO ONCOMING NOC RN.
[2022-07-30 05:23] LABS: Bun/Creatinine Ratio 35.9 (12.0-20.0); Calcium, Blood 8.7 mg/dL (8.5-10.1); Creatinine, Blood 0.67 mg/dL (0.40-1.00); Potassium, Blood 3.4 mmol/L (3.5-5.5)
[2022-07-30 05:26] LABS: BASOPHILS ABSOLUTE AUTO 0.02 K/mm3 (0.00-0.23); BASOPHILS PERCENT AUTO 1 % (0-2); EOSINOPHILS ABSOLUTE AUTO 0.16 K/mm3 (0.00-0.68); EOSINOPHILS PERCENT AUTO 4 % (0-6); Hematocrit 37.3 % (33.0-51.0); Hemoglobin 12.5 g/dL (11.5-16.0); IMMATURE GRAN ABSOLUTE AUTO 0.01 K/mm3 (0.00-0.10); IMMATURE GRAN PERCENT AUTO 0 % (0-1); LYMPHOCYTES ABSOLUTE AUTO 0.88 K/mm3 (0.84-5.20); LYMPHOCYTES PERCENT AUTO 22 % (21-46); MONOCYTES ABSOLUTE AUTO 0.53 K/mm3 (0.16-1.47); MONOCYTES PERCENT AUTO 13 % (4-13); Mean Corpuscular HGB 30.1 pg (26.0-34.0); Mean Corpuscular HGB Conc 33.5 g/dL (31.5-36.5); Mean Corpuscular Volume 90 fL (80-100); Mean Platelet Volume 10.7 fL (9.1-12.4); NEUTROPHILS ABSOLUTE AUTO 2.38 K/mm3 (1.96-9.15); NEUTROPHILS PERCENT AUTO 60 % (41-73); Platelet Count 257 K/mm3 (150-400); RDW Coefficient Variation 12.6 % (11.7-14.2); RDW Standard Deviation 41.2 fL (35.1-46.3); Red Blood Cell Count 4.15 M/mm3 (3.80-5.20); White Blood Cell Count 3.98 K/mm3 (4.00-11.30)
--- NOTE | 2022-07-30 07:32 | NUR ---
T VSS T/O NIGHT. PT CONT TO C/O 11/26 ABD PAIN, DENIED N/V, REP +FLATUS, REP ONGOING HEARTBURN/REFLUX. PT KIMANI SIPS OF WATER, NO OTHER PO INTAKE THIS SHIFT. IVF CONT PER ORDERS. PT AMB INDEP IN HALLS, KIMANI WELL. PLAN FOR SBFT TODAY.
--- NOTE | 2022-07-30 16:06 | NUR ---
SHIFT SUMMARY PT ADMITTED FOR SBO. SMALL BOWEL FOLLOW UP DONE TODAY AND PT IS TO HAVE ANOTHER X-RAY DONE TOMORROW MORNING. IF PATIENT REMAINS OBSTRUCTED SHE MAY BE TRANSFERRED TO [facility]. PT HAD TWO BOUTS OF EMESIS AFTER DRINKING CONTRAST FOR FOLLOW THROUGH. MEDICATED PER EMR FOR NAUSEA. VSS.
--- NOTE | 2022-07-31 05:08 | NUR ---
SHIFT SUMMARY PT HAS RESTED OFF AND ON T/O THE NIGHT. PT CONFIRMS NPO STATUS T/O THE NIGHT FOR SECOND PORTION OF REPEAT SMALL BOWEL FOLLOW THROUGH TODAY. SHE HAS NOT HAD ANY NAUSEA VOMITTING THIS SHIFT BUT CONTINUES TO COMPLAIN OF ABD PAIN. ABD IS FIRM AND TENDER WITH PALPATION. NO BM AND PT IS NOT PASSING GAS. SHE REPORTS THAT SHE IS BELCHING. IVF INFUSING PT HAS BEEN UP AND AMBULATING IN THE ROOM INDEPENDENTLY. PT IS A/OX4 BUT IS ANXIOUS. PT REPORT SOB MOSTLY WITH ACTIVITY, TREATMENTS PER RT. SATS WNL ON RA. PT WEARS 2L O2 PRN FOR COMFORT. VITALS STABLE. BED IN LOWEST POSITION, CALL LIGHT WITHIN REACH.
[2022-07-31 05:12] LABS: BASOPHILS ABSOLUTE AUTO 0.04 K/mm3 (0.00-0.23); BASOPHILS PERCENT AUTO 1 % (0-2); EOSINOPHILS PERCENT AUTO 0 % (0-6); Hematocrit 43.3 % (33.0-51.0); Hemoglobin 14.4 g/dL (11.5-16.0); IMMATURE GRAN ABSOLUTE AUTO 0.03 K/mm3 (0.00-0.10); IMMATURE GRAN PERCENT AUTO 0 % (0-1); LYMPHOCYTES PERCENT AUTO 6 % (21-46); MONOCYTES ABSOLUTE AUTO 0.78 K/mm3 (0.16-1.47); MONOCYTES PERCENT AUTO 9 % (4-13); Mean Corpuscular HGB 30.1 pg (26.0-34.0); Mean Corpuscular HGB Conc 33.3 g/dL (31.5-36.5); Mean Corpuscular Volume 91 fL (80-100); Mean Platelet Volume 10.7 fL (9.1-12.4); NEUTROPHILS ABSOLUTE AUTO 7.37 K/mm3 (1.96-9.15); NEUTROPHILS PERCENT AUTO 85 % (41-73); Platelet Count 343 K/mm3 (150-400); RDW Coefficient Variation 12.7 % (11.7-14.2); RDW Standard Deviation 42.4 fL (35.1-46.3); Red Blood Cell Count 4.78 M/mm3 (3.80-5.20); White Blood Cell Count 8.72 K/mm3 (4.00-11.30)
[2022-07-31 05:41] LABS: Bun/Creatinine Ratio 40.8 (12.0-20.0); Calcium, Blood 9.7 mg/dL (8.5-10.1); Creatinine, Blood 0.86 mg/dL (0.40-1.00); Potassium, Blood 3.5 mmol/L (3.5-5.5)
--- NOTE | 2022-07-31 10:25 | NUR ---
RAPID RESPONSE PT REQUESTED ANXIETY MEDICATION THIS AM DUE TO HAVING "LARYNGEAL SPASMS" AND PT REPORTED ANXIETY. PT APPEARED RESTLESS. DOCTOR SAW PT AT BEDSIDE AND WAS AGREEABLE TO PRESCRIBE ATIVAN. ATIVAN WAS GIVEN PER EMR ORDERS AT 0935. PT APPEARED DROWSY UPON RECEIVING THE ATIVAN BUT WAS RESPONSIVE AND ABLE TO ANSWER QUESTIONS WELL FOLLOW DIRECTIONS. FOR EXAMPLE, PT WAS ABLE TO RINSE HER MOUTH WITH WATER AND SPIT INTO A BASIN AFTER RECEIVING THE ATIVAN. THIS RN LEFT THE ROOM AT THIS TIME DUE TO THE PATIENT APPEARING SAFE, COMFORTABLE, AND HAD HER NEEDS MET WITH HER CALL LIGHT WITHIN REACH. STUDENT NURSE ALERTED NATHALY RN THAT PT WAS WAS NO LONGER SENSICAL WHEN SPEAKING PER HER S/O. NATHALY RN AND KOREY RN HELPED THE PATIENT BACK INTO BED AND REPORTED THAT THE PT WAS ABLE TO BEAR WEIGHT. AT THIS TIME THE PT'S O2 BEGAN TO DESAT AND THE PATIENT BEGAN TO VOMIT. ALSO PER NATHALY RN, PT'S HOB WAS ELEVATED AND SHE BEGAN TO SUCTION THE PATIENT. PER NATHALY RN, RAPID RESPONSE WAS CALLED AT THAT TIME. PT PLACED ON SUPPLEMENTAL O2 AND NON-REBREATHER WHILE RAPID RESPONSE WAS CALLED. AFTER RAPID RESPONSE PT TRANSFERRED TO ICU AND REPORT GIVEN TO FISH HATCHERY INSPECTOR.
--- NOTE | 2022-07-31 11:03 | NUR ---
DR. LIZAMA REQUESTED THAT DR. HAUSER BE NOTIFIED REGARDING TRANSFER TO ICU. DR. HAUSER NOTIFIED OF TRANFER TO ICU AT 1102.
[2022-07-31 11:58] LABS: BASOPHILS ABSOLUTE AUTO 0.07 K/mm3 (0.00-0.23); BASOPHILS PERCENT AUTO 3 % (0-2); Hematocrit 52.1 % (33.0-51.0); Hemoglobin 16.8 g/dL (11.5-16.0); LYMPHOCYTES ABSOLUTE AUTO 0.24 K/mm3 (0.84-5.20); LYMPHOCYTES PERCENT AUTO 10 % (21-46); MONOCYTES ABSOLUTE AUTO 0.08 K/mm3 (0.16-1.47); MONOCYTES PERCENT AUTO 3 % (4-13); Mean Corpuscular HGB 29.9 pg (26.0-34.0); Mean Corpuscular HGB Conc 32.2 g/dL (31.5-36.5); Mean Corpuscular Volume 93 fL (80-100); Mean Platelet Volume 10.4 fL (9.1-12.4); Platelet Count 268 K/mm3 (150-400); RDW Coefficient Variation 12.8 % (11.7-14.2); RDW Standard Deviation 43.8 fL (35.1-46.3); Red Blood Cell Count 5.61 M/mm3 (3.80-5.20)
[2022-07-31 12:03] LABS: EOSINOPHILS ABSOLUTE AUTO 0.02 K/mm3 (0.00-0.68); EOSINOPHILS PERCENT AUTO 1 % (0-6); IMMATURE GRAN ABSOLUTE AUTO 0.03 K/mm3 (0.00-0.10); IMMATURE GRAN PERCENT AUTO 1 % (0-1); NEUTROPHILS ABSOLUTE AUTO 2.06 K/mm3 (1.96-9.15); NEUTROPHILS PERCENT AUTO 82 % (41-73)
[2022-07-31 12:14] LABS: Albumin, Blood 2.7 g/dL (3.4-5.0); Albumin/Globulin Ratio 0.8 (0.8-1.8); Bilirubin, Total 0.7 mg/dL (0.1-1.0); Bun/Creatinine Ratio 32.5 (12.0-20.0); Calcium, Blood 9.1 mg/dL (8.5-10.1); Creatinine, Blood 1.17 mg/dL (0.40-1.00); Globulin, Blood 3.2 g/dL (2.2-4.0); Magnesium, Blood 1.8 mg/dL (1.6-2.4); Phosphorus, Blood 4.7 mg/dL (2.5-4.9); Potassium, Blood 3.3 mmol/L (3.5-5.5); Total Protein, Blood 5.9 g/dL (6.4-8.2)
[2022-07-31 12:21] LABS: PCO2 Arterial 71.1 mmHg (35-45); PO2 Arterial 44.7 mmHg (80-100); pH Blood Arterial 7.11 (7.35-7.45)
--- NOTE | 2022-07-31 13:03 | NUR ---
"Spiritual Care | Rapid Reponse RR Team is addressing the Pt. SO is present and became to focus of this miller kiln dried salt. So displayed evidence of panic and agression toward the RR team. It was this chaplains primary objective to be a calming presence and to remove the SO from the seen. Facilitated a life review and established rapport until a friend of SO arrived. SO displayed evidence of clearer understanding of the Pts. condition. Dr. Aguilar consulted with the PT on two occassions with this miller kiln dried salt present while Pt. was being transferred to ICU. This miller kiln dried salt sat with SO outside ICU until Dr. Ko came for an update. SO was brought to the room to see Pt. SO grieved appropriately. SO decided to not stay at bedside, but was given the ICU phone #. This miller kiln dried salt also was able to get the SO's cell# and had it added to the Pts. admitting info."
--- NOTE | 2022-07-31 13:39 | NUR ---
TRANSFER PT RECEIVED FROM SURGICAL FLOOR AT 1030. PT INTUBATED, UNRESPONSIVE, NGT IN PLACE. NG HOOKED UP TO LIS WITH BILIOUS RETURN WITH SLIGHT RED TINGE. PT TTRANSFERED TO ICU BED. SHEETS FROM SURGICAL FLOOR BED WERE SATURATED WITH GREEN/YELLOW FLUID. IV IN R AC LEAKING. DR. HENDERSON AT THE BEDSIDE AND BP STABLE AT THIS MOMENT SO TALIA, RN PLACED PICC LINE. PENA PLACED BY STUDENT RN WITH INSTRUCTOR PRESENT. DR. HENDERSON BACK TO THE BEDSIDE AND PT'S SATURATION STARTED TO DROP INTO THE 80S. PT'S HR ALSO UP TO 130S. PROPOFOL STARTED. PT'S SATURATIONS CONTINUED TO BE LOW AND THEN PT'S BP STARTED TO DROP. BOLUS STARTED. DR. HENDERSON ORDERED 2.5MG OF METOPROLOL AFTER USING BEDSIDE ULTRASOUND TO LOOK AT PT'S HEART. HR CAME DOWN TO 110S, BUT BP RMEAINED LOW. LEVOPHED STARTED AND QUICKLY INCREASED TO 30MCG/MIN WITH SBP REMAINING IN THE 60S. ORDERS FOR VASOPRESSIN AND SHAD-SYNEPHRINE. DR. HENDERSON PLACED ARTERIAL LINE TO R FEMORAL. 200MCG PHENYLEPHRINE PUSHES GIVEN AT [address] HENDERSON WAS PLACING THE ARTERIAL LINE AND WAITING ON THE DRIPS FROM PHARMACY. AFTER ART LINE PLACED ABG SENT. SPO2 WAS IN THE 60S AT THIS POINT. WITH ABG RESULTS DR. HENDERSON ORDERED PT PRONED. STAT ECHO WAS COMPLETED WHILE AWAITING ABG RESULTS. DR. HENDERSON ALSO ORDERED NIMBEX, BUT IWTH PT'S SPO2 STILL IN THE 60S HE GAVE OK TO PRONE PT PRIOR TO STARTING NIMBEX. PT PRONED WITH RT AND 4 STAFF MEMBERS AT 1240. UPON PRONING PT STARTED HAVING PINK FROTHY SPUTUM. BASED ON ECHO IMAGES DR. HENDERSON ORDERED FOR FLUID BOLUS TO CONTINUE. PT'S SPO2 IN TH EMID 80S ONCE PRONE. MAP DROPPED AND PHENYLEPHRINE HAD TO BE INCREASED TO 300MCG/MIN. PT'S SO VISITED BRIEFLY ONCE BEFORE PRONING AND HAS CAME BACK ONCE SINCE. HE WAS UPDATED BY DR. HENDERSON OR NURSING STAFF EACH TIME. CURRENTLY PT'S HR 120S, SPO2 85% AND MAP 76. DR. HENDERSON JUST UPDATED.
--- NOTE | 2022-07-31 14:43 | NUR ---
Multiple visits today. Pt intubated, proned. Discussed case and reviewed plan of care with lauryn. Review of prognosis. Called and spoke with Pt's JENNY Bosch. Provided update and engaged in therapeutic discsuusion regarding Pt's code status wishes. Neisha reports Pt would not want to receive CPR and wishes are DNR. Offered emotional support and answered questions. Palliative Care will remain available
--- NOTE | 2022-07-31 15:28 | NUR ---
PT'S SPO2 LEVELS CONTINUED TO SLOWLY DROP. DR. HENDERSON TO THE BEDSIDE REPEATEDLY. PALLIATIVE CARE SPOKE WITH PT'S SO ABOUT CODE STATUS AND HE MADE THE DECISION TO MAKE PT DNR. PT STILL HAS LARGE AMOUNTS OF PINK FROTHY SPUTUM COMING OUT OF ETT INTO THE CIRCUIT. RT AWARE AND CHANGED THE CIRCUIT, BUT THERE IS SO MUCH FROTH THAT THE TUBING HAS TO BE CLEARED EVERY COUPLE MINUTES. THIS RN REMAINED IN THE ROOM KEEPING THE CIRCUIT CLEAR. DR. HENDERSON CONSULTED WITH DR. LORA, BOTH OF WHOM CAME TO THE BEDSIDE DISCUSSING CASE. SPO2 CONTINUED TO SLOWLY DROP, WELL BP. PALLIATIVE NOTIFYING PT'S SO OF PT'S FURTHER DECLINE. ORDERS FOR DOBUTAMINE AND ALBUMIN GIVEN. BOTH STARTED AND THEN PT'S HR STARTED TO DROP. DOBUTAMINE STOPPED. 1 AMP EPI GIVEN. HR CONTINUED TO DROP AND THEN WAVEFORM WAS LOST ON ARTERIAL LINE. UNABLE TO AUSCULTATE HEARTBEAT. DR. HENDERSON AND DR. LORA AT THE BEDSIDE STILL AT TOD OF 1514. PT'S SO ARRIVED ABOUT A MINUTE LATER. SUPPORT PROVIDED. MENTAL HEALTH PRACTITIONER ASSISTING SO.
--- NOTE | 2022-07-31 15:38 | NUR ---
"Spiritual Care | EOL support. Pt. had just passed before SO arrived. SO is grieving appropriately and making calls to family and friends. Pastoral support is given, and rapport is re-established. SO displayed evidence of awareness and engagement and even gratitude. SO has chosen [facility] as the home of choice. SO took Pts. belongings and verbalized gratitude for the spiritual care."
== END 2022-07-31 15:14 | DRG 388 ==
LOC: ER 07:57 → ERHOLD 07:58 → SURS 14:54 → ICUW 07-27 15:57
PROVIDERS: Family Medicine; Internal Medicine Critical Care Medicine; Student in an Organized Health Care Education/Training Program; ADMIT Internal Medicine
PROC: 0BH18EZ Insertion of Endotracheal Airway into Trachea, Via Natural or Artificial Opening Endoscopic (ICD-10-PCS; principal; 2022-07-27)
PROC: 02HV33Z Insertion of Infusion Device into Superior Vena Cava, Percutaneous Approach (ICD-10-PCS; 2022-07-27)
PROC: 04HY32Z Insertion of Monitoring Device into Lower Artery, Percutaneous Approach (ICD-10-PCS; 2022-07-31)
PROC: 4A133B1 Monitoring of Arterial Pressure, Peripheral, Percutaneous Approach (ICD-10-PCS; 2022-07-31)
PROC: 4A133J1 Monitoring of Arterial Pulse, Peripheral, Percutaneous Approach (ICD-10-PCS; 2022-07-31)
PROC: 3E033XZ Introduction of Vasopressor into Peripheral Vein, Percutaneous Approach (ICD-10-PCS; 2022-07-31)
PROC: 5A1935Z Respiratory Ventilation, Less than 24 Consecutive Hours (ICD-10-PCS; 2022-07-31)
DX: K56.51 Intestinal adhesions [bands], with partial obstruction (principal); J69.0 Pneumonitis due to inhalation of food and vomit; J96.01 Acute respiratory failure with hypoxia; E87.1 Hypo-osmolality and hyponatremia; K21.9 Gastro-esophageal reflux disease without esophagitis; M35.00 Sjogren syndrome, unspecified; Z51.5 Encounter for palliative care; J45.909 Unspecified asthma, uncomplicated; R01.1 Cardiac murmur, unspecified; G93.89 Other specified disorders of brain; N39.41 Urge incontinence; R73.9 Hyperglycemia, unspecified; R57.8 Other shock; Z87.19 Personal history of other diseases of the digestive system; Z90.722 Acquired absence of ovaries, bilateral; Z93.2 Ileostomy status; Z93.3 Colostomy status; Z98.890 Other specified postprocedural states; Z88.2 Allergy status to sulfonamides; Z79.51 Long term (current) use of inhaled steroids; Z79.899 Other long term (current) drug therapy
CPT/HCPCS: 31500; 36415; 36569; 36600; 36620; 51702; 71045; 74177; 74250; 80048; 80053; 82330; 82803; 83690; 83735; 84100; 84484; 85025; 93005; 93010; 93306; 94002; 94640; 94660; 94664; 94760; 94762; 96374-59; 96375; 96376; 99285-25; A9270; C1751; C9113; G0378; J1720; J1885; J2060; J2270; J2370; J2405; J2704; J3010; J3480; J7030; J7040; J7050; J7060; J7120; Q9967